=== PATIENT | female | born 1960 | race Two or more races ===

== ENCOUNTER 2017-03-23 07:09 | Day surgery (SDC) | payer OTHER ==
[~2017-03-23] VITALS: Ht 154.9 cm; Wt 72.4 kg
[2017-03-23] MEDS ORDERED: HTN MED (08:06)
[2017-03-23] MEDS ORDERED: DIABETES MED (08:06)
[2017-03-23] MEDS ORDERED: CHOLESTEROL MED (08:06)
[2017-03-23] MEDS ORDERED: THYROID MED (08:06)
[2017-03-23 08:07] VITALS: Ht 154.9 cm; Wt 72.4 kg
[2017-03-23 08:33] VITALS: BP 139/75; PULSE 66; RESP 18
[2017-03-23] MEDS ORDERED: FENTAnyl 50 MCG/ML VIAL ONE (09:42)
[2017-03-23] MEDS ORDERED: MIDAZOLAM 1 MG/ML 2 ML INJ ONE ×2 (09:42)
[2017-03-23 10:19] VITALS: BP 121/64; PULSE 56; RESP 16
--- NOTE | 2017-03-23 11:37 | GILP ---
DATE OF PROCEDURE: 03/23/2017 NAME OF PROCEDURE: Colonoscopy and biopsy. SURGEON: Costa Gibbs MD PREOPERATIVE DIAGNOSIS: Screening colonoscopy. POSTOPERATIVE DIAGNOSES 1. Colonoscopy all the way to the cecum. 2. Three small colon polyps were removed using the biopsy forceps. 3. Internal hemorrhoids. INDICATION FOR THE PROCEDURE: Ms. Maggie Liriano is a 57-year-old female patient who was sche duled for screening colonoscopy. The procedure and possible complications were well explained to the patient. The patient understood and consented to the procedure. DESCRIPTION OF PROCEDURE: Under the influence of fentanyl and Versed, the colonoscope was carefully introduced in the rectum and under direct vision, it was advanced all the way to the cecum. FINDINGS: The patient had 3 small colon polyps, 1 in the right colon and 2 in the transverse colon and they were removed using the biopsy forceps. The patient was noted to have internal hemorrhoids. She tolerated the procedure very well and there was no complication from the procedure. At the end of the procedure, she was awake with stable vital signs and she was discharged home to the care of h er family. IMPRESSION: 1. Colonoscopy all the way to the cecum. 2. Three small colon polyps were removed using the biopsy forceps. 3. Internal hemorrhoids. PLAN: 1. Await histopathology report. 2. Followup colonoscopy in 5 years. Dictated By: COSTA MARVIN/ELVIN Conf#: [id number] DID#: [id number] CC: COSTA GIBBS MD;*EndCC*
== END 2017-03-23 12:59 | disposition home or self-care (01) ==
LOC: GIL 07:09
PROVIDERS: ATTEND Internal Medicine Gastroenterology
DX: Z12.11 Encounter for screening for malignant neoplasm of colon (principal); K63.5 Polyp of colon; K64.8 Other hemorrhoids; I10 Essential (primary) hypertension; E11.9 Type 2 diabetes mellitus without complications
CPT/HCPCS: 45380; 88305; J2250; J3010; Z7610